=== PATIENT | female | born 1970 | race Two or more races ===

== ENCOUNTER 2021-05-21 17:50 | Emergency (ER) | payer BC, OTHER ==
[~2021-05-21] VITALS: Ht 157.5 cm; Wt 75.7 kg
[2021-05-21] MEDS ORDERED: ACETAMINOPHEN 325 MG TABLET PO ONE (19:00)
[2021-05-21] MEDS ORDERED: IV NS 0.9% 1,000 ML IV ONE (19:00)
[2021-05-21] MEDS ORDERED: ACETAMINOPHEN 325 MG TABLET ONE (19:07)
[2021-05-21 20:05] LABS: BASOPHILS % (AUTO) 0.3 % (0.0-2.0); HEMATOCRIT 39 % (33-45); HEMOGLOBIN 13.4 g/dL (11.5-14.8); LYMPHOCYTES # (AUTO) 0.7 K/uL (0.8-4.8); LYMPHOCYTES % (AUTO) 19.7 % (20.0-44.0); MEAN CORPUSCULAR HGB CONC 34 g/dl (31.0-36.0); MEAN CORPUSCULAR VOLUME 88 fL (82-100); MONOCYTES # (AUTO) 0.2 K/uL (0.1-1.30); MONOCYTES % (AUTO) 6.3 % (2.0-12.0); NEUTROPHILS # (AUTO) 2.8 K/uL (1.8-8.9); NEUTROPHILS % (AUTO) 73.7 % (43.0-81.0); PLATELET COUNT (AUTO) 209 K/uL (150-450); RED BLOOD CELL COUNT(AUTO) 4.47 MIL/uL (4.0-5.2); WHITE BLOOD COUNT (AUTO) 3.8 K/uL (4.3-11.0)
[2021-05-21 20:12] LABS: CALCIUM, SERUM 7.3 mg/dL (8.5-10.1); CARBON DIOXIDE 22 mmol/L (21-32); CHLORIDE 99 mmol/L (98-107); CREATININE 0.7 mg/dL (0.6-1.3); GLUCOSE 298 mg/dL (74-106); SODIUM SERUM 132 mmol/L (136-145); UREA NITROGEN, BLOOD 11 mg/dL (7-18)
[2021-05-21 20:17] LABS: ALANINE AMINOTRANSFERASE 36 U/L (12-78); ALBUMIN 2.6 g/dL (3.4-5.0); ALKALINE PHOSPHATASE 111 U/L (46-116); ASPARTATE AMINOTRANSFERASE 20 U/L (15-37); BILIRUBIN,TOTAL 0.2 mg/dL (0.2-1.0); TOTAL PROTEIN, SERUM 6.7 g/dL (6.4-8.2)
[2021-05-21] MEDS ORDERED: DOXYCYCLINE HYCLATE (100 MG) 100 MG TABLET PO ONE (22:30)
[2021-05-21] MEDS ORDERED: AMOX/CLAVULANATE 875 MG TABLET PO ONE (22:30)
[2021-05-21] MEDS ORDERED: AMOX/CLAVULANATE 875 MG TABLET ONE (23:35)
[2021-05-21] MEDS ORDERED: DOXYCYCLINE HYCLATE (100 MG) 100 MG TABLET ONE (23:36)
--- NOTE | 2021-05-22 | NUR ---
PATIENT WAITING FOR HCG URINE RESULTS TO BE DC
[2021-05-22] MEDS ORDERED: AMOX-430 PO (00:08)
[2021-05-22] MEDS ORDERED: DOXY100T2 PO (00:08)
[2021-05-22 00:30] LABS: BILIRUBIN,URINE NEGATIVE (NEGATIVE); COLOR,URINE YELLOW (YELLOW); LEUKOCYTE ESTERASE ,URINE TRACE (NEGATIVE); NITRITE, URINE NEGATIVE (NEGATIVE); PH,URINE 6.5 (5.0-8.0); PROTEIN,URINE 100 mg/dl (NEGATIVE); UGLUCOSE 500 MG/DL mg/dL (NEGATIVE); UROBILINOGEN,URINE 0.2 EU/dL (0.2)
--- NOTE | 2021-05-22 01:44 | NUR ---
CALLED LAB FOR STATIS OF HCG URINE RESULTS
--- NOTE | 2021-05-22 02:00 | NUR ---
HCG URINE RESULTED AND IS NEAGTIVE
--- NOTE | 2021-05-22 02:06 | NUR ---
DISCHARGE INSTRUCTIONS GIVEN WITH RX PT LEFT IN STABLE CONDITION.
[2021-05-22 02:07] VITALS: BP 111/74
[2021-05-22 04:29] LABS: BACTERIA,URINE Few /HPF (None Seen); SQUAMOUS EPITHELIAL CELL,UR Moderate /HPF (None Seen)
== END 2021-05-22 02:08 | disposition home or self-care (01) ==
LOC: ER 18:00
DX: U07.1 COVID-19 (principal); J12.82 Pneumonia due to coronavirus disease 2019; E78.5 Hyperlipidemia, unspecified; E11.65 Type 2 diabetes mellitus with hyperglycemia
CPT/HCPCS: 36415; 71045; 80053; 81001; 84484; 84703; 85025; 93005; 99285; J7030